=== PATIENT | male | born 1965 | race Caucasian/White ===

== ENCOUNTER 2020-03-18 | Emergency (ER) | payer OTHER ==
[~2020-03-18] VITALS: Ht 182.9 cm; Wt 120.5 kg
[2020-03-18 00:28] VITALS: TEMP 98.2
[2020-03-18] MEDS ORDERED: HCTZ12.5TAB (00:33)
[2020-03-18] MEDS ORDERED: NASACORT OTC NS (00:34)
[2020-03-18] MEDS ORDERED: PRILOSEC10 MG PO (00:34)
[2020-03-18] MEDS ORDERED: ZYRTEC5 MG PO (00:34)
[2020-03-18 01:10] LABS: BASO % 0.4 % (0.0-2.0); EOS # 0.1 (0.0-0.7); EOS % 1.7 % (0-4.0); GRAN # 5.3 (1.4-6.5); GRAN % 63.8 % (42.2-75.2); HEMATOCRIT 42.3 % (42.0-52.0); HEMOGLOBIN 13.7 g/dl (13.5-18.0); LYMPH # 2.1 (1.2-3.4); LYMPH % 25.1 % (20.0-51.0); MEAN CELL VOLUME 81 fl (80.0-100.0); MEAN CORPUSCULAR HEMOGLOBIN 26 pg (27.0-31.0); MEAN CORPUSCULAR HGB CONC 32 g/dl (33.0-37.0); MONO # 0.7 (0.1-0.6); MONO % 8.6 % (1.7-9.3); PLATELET COUNT 214 K/mm3 (130-400); RED BLOOD COUNT 5.23 M/mm3 (4.20-5.60); REDCELL DISTRIBUTION WIDTH-CV 12.9 % (11.5-14.5)
[2020-03-18 01:16] LABS: INR 1.1 (0.8-3.0); PROTHROMBIN TIME 12.7 SECONDS (9.7-12.8)
[2020-03-18 01:19] LABS: ALANINE AMINOTRANSFERASE 23 U/L (4-49); ALKALINE PHOSPHATASE 44 U/L (50-136); ANION GAP 7 mmol/L (7-16); AST,SGOT 21 U/L (15-37); BILIRUBIN,TOTAL 0.5 mg/dL (0.0-1.0); BLOOD UREA NITROGEN 13 mg/dL (9-20); CALCIUM 8.8 mg/dL (8.4-10.2); CARBON DIOXIDE 29 mmol/L (22-30); CHLORIDE 101 mmol/L (98-107); CREATININE, serum 0.87 (0.66-1.25); GLUCOSE 112 mg/dL (74-106); POTASSIUM 3.5 mmol/L (3.4-5.0); SODIUM 137 mmol/L (137-145); TOTAL PROTEIN 7.3 gm/dL (6.4-8.2)
[2020-03-18 01:31] LABS: TROPONIN-I < 0.012 ng/mL (0.000-0.035)
[2020-03-18 03:46] VITALS: BP 141/86; PULSE 68
== END 2020-03-18 03:54 | disposition home or self-care (01) ==
LOC: COL.ER → EDBD 00:05 → COL.ER 00:05
PROVIDERS: Emergency Medicine
DX: R07.89 Other chest pain (principal); K21.9 Gastro-esophageal reflux disease without esophagitis; E78.5 Hyperlipidemia, unspecified; I10 Essential (primary) hypertension